=== PATIENT | male | born 1980 | race Caucasian/White ===

== ENCOUNTER 2024-08-05 13:00 | Emergency (ER) | payer MEDICAID ==
[~2024-08-05] VITALS: Ht 165.1 cm; Wt 78.0 kg
[2024-08-05 13:08] VITALS: O2SAT 98
[2024-08-05 16:30] LABS: BASOPHILS % 0.8 % (0.0-2.0); EOSINOPHILS % 2.8 % (0.0-5.0); HEMATOCRIT. 44.6 % (42.0-52.0); HEMOGLOBIN. 14.8 g/dL (14.0-18.0); LYMPHOCYTES % 22.9 % (20.0-50.0); MEAN CORPUSCULAR HEMOGLOBIN 29.7 pg (28.0-32.0); MEAN CORPUSCULAR HGB CONC 33.1 g/dL (31.0-37.0); MEAN CORPUSCULAR VOLUME 89.8 fL (80.0-94.0); MEAN PLATELET VOLUME 7.6 fl (7.4-10.4); MONOCYTES % 7.8 % (2.0-8.0); NEUTROPHILS % 65.7 % (40.0-76.0); PLATELET 250 x1000/uL (130-400); RED BLOOD CELL COUNT 4.97 mill/uL (4.7-6.1); RED CELL DISTRIBUTION WIDTH 13.7 % (11.6-14.6); WHITE BLOOD COUNT 8.8 x1000/uL (4.5-11.0)
[2024-08-05 16:41] LABS: CHLORIDE 106 mEq/L (98-107); POTASSIUM 4.1 mEq/L (3.5-5.1); SODIUM 139 mEq/L (136-145)
[2024-08-05 16:42] LABS: CALCIUM 9.1 mg/dL (8.7-10.4); CARBON DIOXIDE 26 mEq/L (21-32)
[2024-08-05 16:47] LABS: CREATININE 1.1 mg/dL (0.6-1.3); GLUCOSE 103 mg/dL (70-105); UREA NITROGEN BLOOD 18 mg/dL (9-23)
[2024-08-05] MEDS ORDERED: NAPR-681 MT (18:22)
[2024-08-05] MEDS ORDERED: AMOX1TAB16 MT (18:22)
[2024-08-05 18:49] VITALS: BP 145/88; PULSE 65; RESP 16; TEMP 36.9; O2SAT 95
== END 2024-08-05 19:12 | disposition home or self-care (01) ==
LOC: ER 13:00
DX: H70.93 Unspecified mastoiditis, bilateral (principal); R51.9 Headache, unspecified
CPT/HCPCS: 36415; 70480; 80048; 85025; 99284

== ENCOUNTER 2024-10-25 07:27 | Emergency (ER) | payer BC, MEDICAID ==
[~2024-10-25] VITALS: Ht 172.7 cm; Wt 80.0 kg
[~2024-10-25 07:27] MED LIST: AMOX1TAB16 MT; NAPR-681 MT
[2024-10-25 07:35] VITALS: TEMP 36.7; O2SAT 97
[2024-10-25 07:58] VITALS: TEMP 98.1
[2024-10-25] MEDS: ACETAMINOPHEN 325MG TABLET PO ONE (07:58)
[2024-10-25] MEDS ORDERED: IBUP-2028 MT (08:47)
[2024-10-25 09:06] VITALS: BP 124/80; PULSE 69; RESP 16; O2SAT 100
== END 2024-10-25 09:09 | disposition home or self-care (01) ==
LOC: ER 07:27
DX: M54.2 Cervicalgia (principal)
CPT/HCPCS: 99284